=== PATIENT | male | born 1965 | race Caucasian/White ===

== ENCOUNTER 2016-09-23 19:36 | Emergency (ER) | payer BC ==
[2016-09-23 19:51] VITALS: BP 132/76
--- NOTE | 2016-09-23 19:54 | ED ---
Lower Extremity - HPI Summary HPI Summary: 50 YEAR OLD PRESENTS WITH COMPLAINS OF RIGHT KNEE PAIN. - History of Current Complaint Chief Complaint: UCLowerExtremity Stated Complaint: KNEE PAIN Time Seen by Provider: 09/23/16 19:53 - Allergies/Home Medications Allergies/Adverse Reactions: Allergies Allergy/AdvReac Type Severity Reaction Status Date / Time Iodine Allergy Intermediate Rash Verified 12/29/15 13:22 Latex Allergy Intermediate Rash Verified 12/29/15 13:22 Penicillins Allergy Unknown Unknown Verified 12/29/15 13:22 Reaction Details Home Medications: Home Medications Magnesium [Magnesium Sulfate] 70 mg PO 09/23/16 [History] PMH/Surg Hx/FS Hx/Imm Hx Previously Healthy: Yes Endocrine/Hematology History: Denies: Hx Diabetes, Hx Thyroid Disease Cardiovascular History: Denies: Hx Hypertension, Hx Pacemaker/ICD Respiratory History: Reports: Hx Chronic Obstructive Pulmonary Disease (COPD) Denies: Hx Asthma GI History: Denies: Hx Ulcer History: Denies: Hx Renal Disease Musculoskeletal History: Reports: Hx Back Problems Sensory History: Reports: Hx Contacts or Glasses Denies: Hx Hearing Aid Opthamlomology History: Reports: Hx Contacts or Glasses Neurological History: Reports: Hx Seizures, Other Neuro Impairments/Disorders Psychiatric History: Denies: Hx Panic Disorder - Surgical History Surgery Procedure, Year, and Place: HX SEIZURES/ MIGRAINES. 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 Smoking Status (MU): Heavy Every Day Tobacco Smoker Type: Cigarettes Amount Used/How Often: 1/2 pack/day Length of Time of Smoking/Using Tobacco: 15 years Have You Smoked in the Last Year: Yes Review of Systems Constitutional: Negative Eyes: Negative ENT: Negative Cardiovascular: Negative Respiratory: Negative Gastrointestinal: Negative Genitourinary: Negative Positive: Myalgia, Other - RIGHT KNEE PAIN All Other Systems Reviewed And Are Negative: Yes Physical Exam Triage Information Reviewed: Yes Vital Signs On Initial Exam: Initial Vitals Temp Pulse Resp BP Pulse Ox 36.8 C 88 18 132/76 97 09/23/16 19:48 09/23/16 19:48 09/23/16 19:48 09/23/16 19:48 09/23/16 19:48 Vital Signs Reviewed: Yes Skin: Positive: Warm Head/Face: Positive: Normal Head/Face Inspection Eyes: Positive: Normal ENT: Positive: Normal ENT inspection Cardiovascular: Positive: RRR Abdomen Description: Positive: Nontender Musculoskeletal: Positive: Other - RIGHT KNEE PAIN Diagnostics - Vital Signs Vital Signs Temp Pulse Resp BP Pulse Ox 09/23/16 19:48 36.8 C 88 18 132/76 97 - Laboratory Lab Statement: Any lab studies that have been ordered have been reviewed, and results considered in the medical decision making process. Lower Extremity Course/Dx - Diagnoses Provider Diagnoses: Knee pain, chronic Discharge - Discharge Plan Condition: Stable Disposition: HOME Prescriptions: Meloxicam [Mobic] 7.5 mg PO BID PC #30 tab Patient Education Materials: Knee Pain (ED) Referrals: John Leong MD [Medical Doctor] - Kim Tracey MD [Primary Care Provider] -
--- NOTE | 2016-09-23 20:49 | RAD ---
INDICATION: Atraumatic right knee pain COMPARISON: None TECHNIQUE: 5 view radiograph of the right knee. FINDINGS: Degenerative changes of the right knee include narrowing of the lateral compartment more so than the medial compartment. There is narrowing of the patellofemoral joint with exuberant marginal osteophyte formation at the superior pole. On the sunrise view there is medial greater than lateral narrowing of the patellofemoral joint with marginal osteophyte formation. On the AP view the patella appears to be displaced laterally but this may be simply a consequence of poor positioning. There is no large joint effusion. IMPRESSION: Degenerative changes as described above appearing advanced for the patient's stated age. Please correlate to signs or symptoms of patellar tracking syndrome. If the patient's symptoms persist, follow-up imaging is recommended.
[2016-09-23] MEDS ORDERED: Ibuprofen TAB* 400 MG PO ONE (20:53)
== END 2016-09-23 21:04 | disposition home or self-care (01) ==
LOC: UCEAST 19:36
DX: M25.561 Pain in right knee (principal); G89.29 Other chronic pain; Z88.0 Allergy status to penicillin; Z91.040 Latex allergy status; J44.9 Chronic obstructive pulmonary disease, unspecified; F17.210 Nicotine dependence, cigarettes, uncomplicated
CPT/HCPCS: 99212; A9270-GY; G0463

== ENCOUNTER 2016-12-13 11:00 | Inpatient (IN) | payer BC ==
--- NOTE | 2016-12-18 21:50 | HP ---
HISTORY AND PHYSICAL: DATE OF SURGERY: 12/24/16 DATE OF OFFICE VISIT: 12/17/16 SURGEON: Cecilia Edwards MD* (dictated by SHARON Booker). PROCEDURE: Right total knee arthroplasty. CHIEF COMPLAINT: Right knee pain. HISTORY OF PRESENT ILLNESS: Mr. Price is a 51-year-old gentleman with severe end- stage osteoarthritis of the right knee joint. He has failed conservative management and has elected to proceed with a right total knee arthroplasty, which is scheduled for 12/24/[address] Edwards. PAST MEDICAL HISTORY: 1. Migraines. 2. Unspecified seizure disorder. PAST SURGICAL HISTORY: Denies. CURRENT MEDICATIONS: 1. Percocet. 2. Nabumetone. 3. Gabapentin. 4. Rizatriptan benzoate. 5. Amitriptyline. ALLERGIES: Iodine and penicillin. FAMILY HISTORY: Diabetes, hypertension. SOCIAL HISTORY: He is a 51-year-old gentleman lives with his . He smokes approximately 1 pack of cigarettes a day for the last 15 years. He denies use of drugs or alcohol. REVIEW OF SYSTEMS: A complete 14-point review of systems was reviewed with the patient. It was positive for history of seizures. Denies history of DVT, PE, hepatitis C, or HIV. PHYSICAL EXAMINATION GENERAL: Well developed, well nourished, in no acute distress. VITAL SIGNS: He stands 6 feet tall, weighs 235 pounds. Blood pressure is 128/ 76, heart rate is 76. HEENT: Normocephalic, atraumatic. NECK: Supple. No palpable lymph nodes. PULMONARY: Clear to auscultation bilaterally. CARDIO: Regular rate and rhythm. Strong S1, S2. ABDOMEN: Soft, nontender, nondistended. NEUROLOGICAL: Alert and oriented x3. Cranial nerves II through XII are intact. MUSCULOSKELETAL: Right lower extremity, the skin is intact. There are no open wounds or abrasions. There is a valgus deformity of the knee with MCL laxity. Moderate joint effusion. 10 to 100 degrees of flexion with patellofemoral crepitus and pain. No varus or valgus instability. Negative Eran's. He was distally neurovascularly intact. ASSESSMENT AND PLAN: Mr. Price is a 51-year-old gentleman with severe end- stage osteoarthritis of the right knee joint with a valgus deformity. He has failed conservative management and has elected to proceed with a right total knee arthroplasty, which is scheduled for 12/24/[address] Edwards discussed the risks and benefits of the surgery at today's visit and all of his questions were answered. Coumadin, Percocet, and Colace were sent to his pharmacy for postoperative pain control and DVT prophylaxis. He will follow up with Dr. Edwards in 2 weeks after the surgery. SHARON BOOKER [id number]/[facility] #: [id number] JONATHAN
[2016-12-24] MEDS ORDERED: Buffered Lidocaine 0.9% SYRIN* 5 ML/SYR SYRINGE INTRADERM ONE (06:00)
[2016-12-24] MEDS ORDERED: Famotidine IV* 10 MG/ML 2 ML (20 mg) IV ONE (06:00)
[2016-12-24] MEDS ORDERED: Metoclopramide TAB* 10 MG PO ONE (06:00)
[2016-12-24] MEDS ORDERED: Clindamycin 900 MG IVPREMIX(* 900 MG/50 ML SDV IV ONE (08:41)
[2016-12-24] MEDS ORDERED: Famotidine IV* 10 MG/ML 2 ML (20 mg) ONE (08:41)
[2016-12-24] MEDS ORDERED: Metoclopramide TAB* 10 MG ONE (08:41)
[2016-12-24] MEDS ORDERED: Buffered Lidocaine 0.9% SYRIN* 5 ML/SYR SYRINGE ONE (08:42)
[2016-12-24] MEDS ORDERED: Ketorolac INJ* 30 MG/ML 1 ML VIAL ONE (09:58)
[2016-12-24] MEDS ORDERED: fentaNYL* 50 MCG/ML 2 ML VIAL (100 MCG VIAL) ONE ×4 (09:58→15:26)
[2016-12-24] MEDS ORDERED: Dexamethasone IV* 4 MG/ML 1 ML (4 MG) ONE (09:58)
[2016-12-24] MEDS ORDERED: KETAMINE HCL* 50 MG/ML 10 ML VIAL ONE (09:58)
[2016-12-24] MEDS ORDERED: Propofol* 10 MG/ML 20 ML BTL IV PUSH ONE (09:58)
[2016-12-24] MEDS ORDERED: Ondansetron INJ* 2 MG/ML VIAL ONE (09:58)
[2016-12-24] MEDS ORDERED: Lidocaine 2% PF * 5 ML VIAL ONE ×2 (09:58→10:05)
[2016-12-24] MEDS ORDERED: Midazolam* 1 MG/ML 5 ML VIAL (5 MG) ONE (09:59)
[2016-12-24] MEDS ORDERED: ROPIVACAINE 5 MG/ML 30 ML BTL (0.5%) ONE (10:05)
[2016-12-24] MEDS ORDERED: Cisatracurium* 2 MG/ML MDV 5 ML ONE (11:33)
[2016-12-24] MEDS ORDERED: fentaNYL* 50 MCG/ML 5 ML VIAL (250 MCG VIAL) ONE (11:35)
[2016-12-24] MEDS ORDERED: Levalbuterol HFA INHALER* 1 PUFF MDI ONE (11:55)
[2016-12-24] MEDS ORDERED: Phenylephrine IV* 40 MCG/ML 10 ML SYRINGE ONE (12:02)
[2016-12-24] MEDS ORDERED: Ondansetron INJ* 2 MG/ML VIAL IV PRN ×2 (12:43→14:56)
[2016-12-24] MEDS ORDERED: DiMENhydriNATE IV* 50 MG/ML VIAL IV PUSH PRN (12:43)
[2016-12-24] MEDS ORDERED: Levalbuterol 0.63MG/3ML NEB* UNIT OF USE INH PRN (12:43)
[2016-12-24] MEDS ORDERED: Bupivacaine 0.5% SDV PF* 30 ML VIAL ONE (13:44)
[2016-12-24] MEDS ORDERED: HYDROmorphone INJ* 1 MG/ML CARPUJECT SYRINGE ONE ×3 (13:48→15:26)
[2016-12-24] MEDS ORDERED: Polyethylene Glycol 3350* 17 GM PACKET PO PRN (14:56)
[2016-12-24] MEDS ORDERED: Acetaminophen TAB* 325 MG PO PRN (14:56)
[2016-12-24] MEDS ORDERED: traZODone TAB* 50 MG TAB PO PRN (14:56)
[2016-12-24] MEDS ORDERED: Bisacodyl SUPP* 10 MG SUPP PR PRN (14:56)
[2016-12-24] MEDS ORDERED: oxyCODONE/Acetamin 5/325 MG* TAB PO PRN (14:56)
[2016-12-24] MEDS ORDERED: diPHENhydraMINE IV* 50 MG/ML 1 ml VIAL (BENADRYL) IV PRN (14:56)
[2016-12-24] MEDS ORDERED: Levalbuterol 1.25MG/0.5ML NEB ONE (14:58)
[2016-12-24] MEDS: fentaNYL* 50 MCG/ML 2 ML VIAL (100 MCG VIAL) IV PRN ×5 (15:00→16:13)
[2016-12-24] MEDS: HYDROmorphone INJ* 1 MG/ML CARPUJECT SYRINGE IV PRN ×3 (15:00→16:13)
--- NOTE | 2016-12-24 15:31 | RAD ---
INDICATION: Right knee arthroplasty COMPARISON: Preoperative radiograph dated December 17, 2016 TECHNIQUE: 2 view radiograph of the right knee. FINDINGS: On the AP and lateral views the right knee prosthesis is anatomically aligned. There is lucency and irregularity of the anterior tibial plateau seen on the lateral view corresponding to the appearance seen on the preoperative radiograph. A surgical drain is noted in place. IMPRESSION: Anatomic alignment of right knee prosthesis as described above.
[2016-12-24] MEDS ORDERED: Warfarin TAB(*) 6 MG PO ONE (17:00)
[2016-12-24] MEDS ORDERED: Gabapentin CAP(*) 300 MG ONE (17:18)
[2016-12-24] MEDS: oxyCODONE TAB* 5 MG TAB PO PRN ×2 (17:21→21:57)
[2016-12-24] MEDS: Morphine INJ* 2 MG/ML 1 ML SYRINGE (TWO MG - NEW SYRINGE VERSION) IV PRN (17:23)
[2016-12-24] MEDS ORDERED: Gabapentin CAP(*) 300 MG PO SCH (18:00)
[2016-12-24] MEDS ORDERED: Mouth Piece, Nicotine* 1 EACH CARTRIDGE INH ONE (18:00)
[2016-12-24] MEDS: Nicotine Inhaler* 10 MG AMP INH PRN ×2 (18:23→22:02)
[2016-12-24] MEDS: oxyCODONE/Acetamin 5/325 MG* TAB PO PRN (19:30)
[2016-12-24] MEDS ORDERED: Amitriptyline TAB* 100 MG PO SCH (21:00)
[2016-12-24] MEDS: Gabapentin CAP(*) 300 MG PO SCH (21:49)
[2016-12-24] MEDS: Docusate CAP* 100 MG PO SCH (21:49)
[2016-12-24] MEDS: Magnesium Hydroxide LIQ* 30 ML UDC PO SCH (21:49)
[2016-12-24] MEDS: Clindamycin 600 MG IVPREMIX(* 600 MG/50 ML SDV IV SCH (21:57)
[2016-12-25] MEDS: oxyCODONE/Acetamin 5/325 MG* TAB PO PRN ×4 (01:17→15:54)
[2016-12-25] MEDS: Morphine INJ* 2 MG/ML 1 ML SYRINGE (TWO MG - NEW SYRINGE VERSION) IV PRN (01:21)
[2016-12-25] MEDS: Clindamycin 600 MG IVPREMIX(* 600 MG/50 ML SDV IV SCH ×2 (04:15→12:09)
[2016-12-25] MEDS: oxyCODONE TAB* 5 MG TAB PO PRN ×3 (04:29→13:58)
[2016-12-25 04:50] LABS: Hematocrit 34 % (42-52); Hemoglobin 11.5 g/dl (14.0-18.0)
[2016-12-25 05:06] LABS: BUN/Creatinine Ratio 12.1 (8-20); Calcium 8.7 mg/dL (8.6-10.3); EGFR African American 102.5 (>60); EGFR Non-African American 79.7 (>60); Potassium 4.3 mmol/L (3.5-5.0)
[2016-12-25] MEDS: Nicotine Inhaler* 10 MG AMP INH PRN ×4 (06:08→16:49)
--- NOTE | 2016-12-25 07:09 | OP ---
DICTATION ENDS ABRUPTLY DATE OF OPERATION: 12/24/16 - ROOM #347 DATE OF : 65 SURGEON: Cecilia Edwards MD. SUPERVISOR ESTERS AND EMULSIFIERS: SHARON Duran. Ms. Lundberg did help throughout the procedure with preparation of the leg, wound retraction, manipulation of the knee and wound closure. ANESTHESIOLOGIST: Dr. Favian Pacheco. ANESTHESIA: General with adductor nerve block. PRE-OP DIAGNOSIS: Severe posttraumatic degenerative osteoarthritis of the right knee joint with valgus deformity. POST-OP DIAGNOSIS: Severe posttraumatic degenerative osteoarthritis of the right knee joint with valgus deformity. OPERATIVE PROCEDURE: Right total knee arthroplasty. TOURNIQUET TIME: 65 minutes. ESTIMATED BLOOD LOSS: 200 cc. COMPLICATIONS: None. SPECIMEN: Bone and cartilage from the right knee joint sent to pathology. BRIEF HISTORY/INDICATION: Mr. Price is a pleasant 51-year-old gentleman with prior trauma to the right knee. Over time, he did have surgical intervention as well as physical therapy, intraarticular injections, antiinflammatories, and pain medications. He developed posttraumatic osteoarthritis with lateral bone- on-bone contact and radiographs showing also to date valgus deformity of the right knee. Due to continued pain and decreased quality of life, the patient elected to undergo right total knee arthroplasty. Informed consent was obtained from the patient. He understood the risks of the surgery included, but were not limited to bleeding, infection, damage to nearby structures, continued pain, need for further surgery, intraoperative fracture, nerve palsy, hardware failure, loosening, knee stiffness, loss of motion, stroke, heart attack, blood clot, and . He wished to proceed. Specific to this patient were the risks of intraoperative fracture due to tibial tuberosity abnormal calcification as well as early loosening due to his young age. He accepted these increased risks. INTRAOPERATIVE FINDINGS: Intraoperatively, the patient was noted to have a large anterior intraarticular loose body, which was approximately 1 cm in diameter. He had full thickness loss of cartilage in the lateral and patellofemoral compartments. He had significant patella baja as well as tibial tubercle ossification. Preop range of motion was 15 to 120 degrees of flexion. Postop range of motion was full extension to 130 degrees of flexion. Preop valgus deformity of 12 degrees. Postoperative valgus alignment to 5 degrees. DESCRIPTION OF PROCEDURE: Mr. Price was identified in the preanesthesia unit. His right lower extremity was marked as the correct operative side. Informed consent was signed and placed in the chart. Patient was taken to the operating room and placed under general anesthesia with an adductor nerve block. A Guillen catheter was placed. Tourniquet was placed on the right thigh. Right lower extremity was prepped and draped in the usual sterile fashion. Preop time-out was made to correctly identify the patient's side and site. Appropriate perioperative antibiotics were given within 1 hour of incision. Tourniquet was inflated and total tourniquet time for this procedure was 65 minutes. A 15-cm midline incision was made with a 10 blade and carried down to the extensor mechanism. A new 10 blade was used to make a standard medial para- patellar arthrotomy. The patella was subluxed laterally. Immediately, there was patella baja and difficulty with exposure due to tibial tubercle ossification. A 1 cm loose body was removed with rongeur from the anterior tibia near the tibial tubercle region. Electrocautery was used to subperiosteally elevate soft tissue off the superomedial tibia to the midsagittal plane. The knee was flexed up. Anterior horn of the lateral meniscus and ACL were sharply released. A drill was used to enter the distal femur. Intramedullary distal femoral cutting guide was placed, was pinned into proper position. Lateral femoral condyle hypoplasia was noted and accounted for. Oscillating saw was used to make the distal femoral cut. Next the external rotation guide was pinned on the distal femur. Distal femur was sized to a size 7. Size 7 multi cutting jig was placed and then oscillating saw was used to make the appropriate 4 chamfer cuts. PCL was completely released. The tibia was subluxed anteriorly. Extramedullary tibial cutting guide was pinned on the proximal tibia. The oscillating saw was used to make the appropriate proximal tibial cut perpendicular to the mechanical axis of the tibia. The bone was carefully removed. The knee was brought out to full extension. Spacer block had good fit. There was tightness laterally. Electrocautery was used to release the posterolateral capsule. 15 blade was used to make pie-crusting along the lateral ligaments that were tight. Medial and lateral ligament balancing was improved. Flexion and extension gap was well balanced. The knee was flexed up. Lamina spreaders were placed both medially and laterally. Any remaining meniscus was carefully excised using electrocautery. Curved osteotome was used to remove posterior osteophytes. A tibial tray and drop nohemy was placed and once again confirmed satisfactory proximal tibial cut. A right, size 7 femoral trial was impacted onto the femur and he had good fit. The box for the posterior stabilized implant was repaired using a reamer and box cut osteotome. Trial size 6 tibial tray with a 9-mm insert trial was placed. The knee was taken through a range of motion and had full extension to 130 degrees of flexion with with good patellofemoral tracking. The patella was everted. There was a short patellar tendon with patellar baja that was chronic, as well as tremendous calcification of the tibial tuberosity. 9 mm of patellar bone and cartilage was successfully removed with an oscillating saw. The patella was sized to a size 35 and the three peg holes were drilled. Trial patella was placed and patellar tracking was satisfactory. All trials were removed, the tibia was sized to a size 6. The tibia was prepared with a size 6 keel punch. All bony cut surfaces were washed with normal saline and dried. The final implants were cemented into place. 9 mm insert trial was placed and the knee was brought out into full extension. The tourniquet was turned down at 65 minutes. Electocautery was used to obtain meticulous hemostasis. The knee was irrigated with normal saline. Once the cement had cured the insert trial was removed. Any excess cement was carefully removed. Final insert was a 9 mm size 5-6 posterior stabilized insert. This was locked onto the tibial tray. The extensor mechanism was closed over a medium hemovac drain using interrupted 1-0 vicryls. The rest of the incision was closed in a layered fashion and running 3-0 nylon was used on skin. Sterile dressings were applied. The patient's anesthesia was reversed without difficulty. He was taken to the PACU in stable condition. Intended weightbearing will be WBAT. Intended DVT prophylaxis will be coumadin with a lovenox bridge. [id number]/[facility] #: [id number] MTDD
[2016-12-25] MEDS: Magnesium Hydroxide LIQ* 30 ML UDC PO SCH (07:42)
[2016-12-25] MEDS: Gabapentin CAP(*) 300 MG PO SCH ×2 (07:44→13:59)
[2016-12-25] MEDS: Docusate CAP* 100 MG PO SCH (07:44)
--- NOTE | 2016-12-25 08:19 | PN ---
Progress Note - Progress Note Date of Service: 12/25/16 SOAP: Subjective: []Patient seen at bedside. He is doing very well and would like to go home today. Pain is rated 6-7/10 with percocet and oxycodone. His murray was removed and he is urinating on his own without difficulty. He has not had a bowel movement yet but is passing gas. Denies chest pain, shortness of breath, calf pain, nausea, abdominal upset, fever. Objective: [] Laboratory Last Values Hgb 11.5 g/dl (14.0-18.0) L 12/25/16 04:37 Hct 34 % (42-52) L 12/25/16 04:37 INR (Anticoag Therapy) 1.05 (0.89-1.11) 12/25/16 04:37 Sodium 134 mmol/L (133-145) 12/25/16 04:37 Potassium 4.3 mmol/L (3.5-5.0) 12/25/16 04:37 Chloride 105 mmol/L (101-111) 12/25/16 04:37 Carbon Dioxide 25 mmol/L (22-32) 12/25/16 04:37 Anion Gap 4 mmol/L (2-11) 12/25/16 04:37 BUN 12 mg/dL (6-24) 12/25/16 04:37 Creatinine 0.99 mg/dL (0.67-1.17) 12/25/16 04:37 Est GFR ( Amer) 102.5 (>60) 12/25/16 04:37 Est GFR (Non-Af Amer) 79.7 (>60) 12/25/16 04:37 BUN/Creatinine Ratio 12.1 (8-20) 12/25/16 04:37 Glucose 155 mg/dL (70-100) H 12/25/16 04:37 Calcium 8.7 mg/dL (8.6-10.3) 12/25/16 04:37 Vital Signs Temp 98.0 F 12/25/16 04:01 Pulse 76 12/25/16 04:01 Resp 16 12/25/16 07:44 BP 108/63 12/25/16 04:01 Pulse Ox 96 12/25/16 04:25 Intake & Output 12/24/16 12/25/16 12/25/16 18:59 06:59 18:59 Intake Total 3540 4290 Output Total 750 5700 Balance 2790 -1410 Weight 236 lb Intake: IV Fluids 3300 1035 LR 1950 980 NS 0.9% 1350 clindamycin 55 IVPB 55 clindamycin 55 Oral 240 3200 Output: Murray 750 5700 Other: # Bowel Movements 0 Dr. Edwards removed drain this morning without complication. Dressing is clean, dry, intact. Calves are supple and nontender without erythema or edema. DP and PT pulses 2+ and symmetric Sensation to light touch intact of right extremity Distally DF/PF intact bilaterally, negative homen's sign bilaterally. Horizontal nystagmus Assessment: [] POD1 Right Total Knee arthroplasty, Dr. 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 Edwards agrees patient can go home today if PT feels he is ready. Percocet/ Oxycodone for pain control. Has percocet at home Currently on coumadin, if home today transition to ASA 325 BID
[2016-12-25] MEDS ORDERED: Enoxaparin(*) 40 MG/0.4 ML SYR SUBCUT SCH (09:00)
[2016-12-25] MEDS ORDERED: Nabumetone TAB* 500 MG PO SCH (09:00)
[2016-12-25] MEDS ORDERED: Vitamin THERAPEUTIC TAB PO SCH (09:00)
--- NOTE | 2016-12-25 15:32 | PN ---
Progress Note - Progress Note Date of Service: 12/25/16 SOAP: Subjective: []Patient was seen at bedside, he is feeling very well and eager to go home. Pain is well controlled. Tolerating PO, urinating and passing gas. No BM yet. Comfortable walking with walker, has home care set up. Objective: [] General: alert, calm and cooperative. In no acute distress RLE: - DP, PT pulses 2+ - Calf supple and nontender, negative homen sign - sensation intact distally - DF/PF intact - Dressing with scant bloody discharge, falling down superiorly. Dressing was changed, wound was clean dry and intact without erythema of wound edges, no discharge. Assessment: [] POD1 Right total knee arthroplasty Plan: [] Discharge home today Home serves are set up, has post op appt with Dr. Edwards Aspirin 325 mg BID. Knows not to take coumadin at home Shower POD 3, no submerging wound. Percocet for pain control at pharmacy
[2016-12-25] MEDS ORDERED: Warfarin TAB(*) 10 MG PO ONE (17:00)
[2016-12-25 17:23] VITALS: BP 158/82
--- NOTE | 2016-12-26 04:54 | DS ---
DISCHARGE SUMMARY: DATE OF ADMISSION: 12/24/16 DATE OF DISCHARGE: 12/25/16 DATE OF SURGERY: 12/24/16 PROCEDURE: Right total knee arthroplasty. SURGEON: Dr. Cecilia Edwards * (DICTATED BY SHARON ORTEGA) FASHION STYLIST: SHARON Duran. CONSULTATIONS: Included Physical Therapy, Occupational Therapy. HISTORY: Mr. Price is a 51-year-old gentleman with severe end-stage osteoarthritis of the right knee joint. He has failed conservative management and has elected to proceed with a right total knee arthroplasty on 12/24/[address] Edwards. HOSPITAL COURSE: Mr. Price was admitted to [facility] on 12/24/16. He underwent a right total knee arthroplasty. Postoperatively, he recovered in the short stay surgical unit. On postoperative day 1, his Guillen catheter was removed and he was able to urinate on his own. He was advanced to a regular diet without difficulty and his pain was controlled with p.o. Percocet as well as oxycodone. He was restarted on home medications. His vital signs and labs remained stable throughout his course. He was able to bear weight as tolerated on the right lower extremity. He advanced appropriately with physical therapy and occupational therapy. His DVT prophylaxis was managed with Lovenox and Coumadin. Due to his early discharge, he is being discharged on aspirin 325 mg twice per day and discontinuing Coumadin and Lovenox. PHYSICAL EXAMINATION: General: The patient is noted to be calm and cooperative , in no acute distress. He is alert. He is oriented. Vital signs on the day of discharge, temperature 98.0, pulse 86, respiratory rate 17, oxygen saturation 100, blood pressure 153/79. Examination of the right lower extremity , Dr. Edwards removed drain on postop day 1 without complication. Dressing is clean, dry, and intact. Just prior to discharge, dressing was changed due to falling down. Incision appeared clean, without discharge. No surrounding erythema. Calves are supple and nontender without erythema or edema. Dorsalis pedis and posterior tibial pulses are 2+ and symmetric. Sensation to light touch of right lower extremity is intact distally. Dorsiflexion and plantarflexion are intact bilaterally. Negative Priya sign bilaterally. LABORATORY DATA: On the day of discharge, hemoglobin 11.5, hematocrit 34. INR 1.05. Radiographs showed anatomic alignment of the right knee prosthesis. DISCHARGE MEDICATIONS: Include home medication of: 1. Gabapentin 600 mg p.o. t.i.d. 2. Amitriptyline 10 mg, take 100 mg p.o. at bedtime. 3. Gabapentin 300 mg q.p.m. 4. Nabumetone 500 mg p.o. q.a.m. Medications associated with this discharge include: 1. Acetaminophen 325 mg tablet, take 650 tabs p.o. q.4 hours p.r.n. for pain or fever. Max daily dose is 4000 mg. 2. Aspirin 325 mg one tab p.o. b.i.d. 3. Docusate 100 mg one tab p.o. b.i.d. 4. Percocet 5/325, one to two tabs p.o. q.4 to 6 hours, max daily dose of 10. CONDITION ON DISCHARGE: Stable. DISCHARGE INSTRUCTIONS: Mr. Price is a 51-year-old gentleman, postop day 1, status post right total knee arthroplasty, which was uncomplicated. He is orthopedically and medically stable for discharge to home with services. His labs and vital signs are stable. He will restart his home medications. He will not be on any Coumadin. He will be taking aspirin 325 mg b.i.d. He will remain weightbearing as tolerated on the right lower extremity. He will have home PT twice a week. He will take Percocet for pain control. He will take Colace up to 3 times a day for constipation. He will follow up with Dr. Edwards in 10 to 14 days for incision check and suture removal for which he already has an appointment. He was instructed to go immediately to the ER should he develop any chest pain or shortness of breath. Should he develop fever, increasing pain, or increasing redness, he is to call the office immediately. SHARON ORTEGA [id number]/[facility] #: [id number] JONATHAN
== END 2016-12-25 17:20 | disposition home health service (06) | DRG 302 ==
LOC: AA 12-24 08:14 → SSU 12-24 16:57
PROVIDERS: ADMIT Orthopaedic Surgery Adult Reconstructive Orthopaedic Surgery; ATTEND Orthopaedic Surgery Adult Reconstructive Orthopaedic Surgery
PROC: 0SRC0J9 Replacement of Right Knee Joint with Synthetic Substitute, Cemented, Open Approach (ICD-10-PCS; principal; 2016-12-24 13:00)
DX: M17.31 Unilateral post-traumatic osteoarthritis, right knee (principal); F17.210 Nicotine dependence, cigarettes, uncomplicated; G43.909 Migraine, unspecified, not intractable, without status migrainosus; G40.909 Epilepsy, unspecified, not intractable, without status epilepticus; H55.09 Other forms of nystagmus; H52.209 Unspecified astigmatism, unspecified eye; J44.9 Chronic obstructive pulmonary disease, unspecified; M51.26 Other intervertebral disc displacement, lumbar region; M21.061 Valgus deformity, not elsewhere classified, right knee; Z79.82 Long term (current) use of aspirin; Z88.8 Allergy status to other drugs, medicaments and biological substances; Z88.0 Allergy status to penicillin; Z83.3 Family history of diabetes mellitus; Z82.49 Family history of ischemic heart disease and other diseases of the circulatory system; Q74.2 Other congenital malformations of lower limb(s), including pelvic girdle
CPT/HCPCS: 36415; 80048; 85014; 85018; 85610; A9270-GY; C1776; J1100; J1170; J1650; J1885; J2250; J2270; J2405; J2704; J2795; J3010; J7614

== ENCOUNTER 2017-01-17 17:38 | Emergency (ER) | payer BC ==
--- NOTE | 2017-01-17 18:32 | ED ---
Lower Extremity - HPI Summary HPI Summary: 51M presents with right leg pain. He has knee replacement done by dr Edwards in Nov 2016. He states he had replacement due to abnormality with his knee. He states today he was trying to hang the lights and stood on toes and felt a pop in knee. He states has pain that radiates up right thigh. He has notice more swelling in the knee. He states is sharp pain in thigh. He denies any dislocation of his patella. He has been doing PT for his knee replacement. PT comes tomorrow. - History of Current Complaint Chief Complaint: EDExtremityLower Stated Complaint: KNEE PAIN Time Seen by Provider: 01/17/17 17:49 Pain Intensity: 9 - Allergies/Home Medications Allergies/Adverse Reactions: Allergies Allergy/AdvReac Type Severity Reaction Status Date / Time Iodine Allergy Intermediate Rash Verified 12/24/16 08:56 Latex Allergy Intermediate Rash Verified 12/24/16 08:56 Penicillins Allergy Unknown Unknown Verified 12/24/16 08:56 Reaction Details PMH/Surg Hx/FS Hx/Imm Hx Endocrine/Hematology History: Denies: Hx Diabetes, Hx Thyroid Disease Cardiovascular History: Denies: Hx Hypertension, Hx Pacemaker/ICD, Other Cardiovascular Problems/ Disorders Respiratory History: Reports: Hx Chronic Obstructive Pulmonary Disease (COPD) Denies: Hx Asthma GI History: Denies: Hx Ulcer History: Denies: Hx Renal Disease Musculoskeletal History: Reports: Hx Arthritis - back, knees and hands, Hx Back Problems Sensory History: Reports: Hx Contacts or Glasses - glasses Denies: Hx Hearing Aid Opthamlomology History: Reports: Hx Contacts or Glasses - glasses Neurological History: Reports: Hx Headaches, Hx Migraine - 1 per month with stress, Hx Seizures - last one 5 yrs ago from fall, Other Neuro Impairments/ Disorders Psychiatric History: Denies: Hx Panic Disorder, Other Psychiatric Issues/Disorders - Surgical History Surgery Procedure, Year, and Place: HX SEIZURES/ MIGRAINES. 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 Smoking Status (MU): Heavy Every Day Tobacco Smoker Type: Cigarettes Amount Used/How Often: pack a day for 31 years Length of Time of Smoking/Using Tobacco: 15 years Have You Smoked in the Last Year: Yes Review of Systems Negative: Fever Negative: Chest Pain Negative: Shortness Of Breath Positive: Myalgia - right knee and thigh pain All Other Systems Reviewed And Are Negative: Yes Physical Exam Triage Information Reviewed: Yes Vital Signs On Initial Exam: Initial Vitals Temp Pulse Resp BP Pulse Ox 98.5 F 114 18 133/80 98 01/17/17 17:42 01/17/17 17:42 01/17/17 17:42 01/17/17 17:42 01/17/17 17:42 Vital Signs Reviewed: Yes Appearance: Positive: Well-Appearing Skin: Positive: Warm, Dry, Other - has healing incision on right knee Head/Face: Positive: Normal Head/Face Inspection Eyes: Positive: Normal, Conjunctiva Clear Respiratory/Lung Sounds: Positive: Clear to Auscultation, Breath Sounds Present Cardiovascular: Positive: Normal, RRR Musculoskeletal: Positive: Limited @ - right knee, able to flex to 90 with pain , Other - pain and tender over quadriceps and pattela, neg ballotment, good pulses Neurological: Positive: Normal Psychiatric: Positive: Normal Diagnostics - Vital Signs Vital Signs Temp Pulse Resp BP Pulse Ox 01/17/17 17:42 98.5 F 114 18 133/80 98 - Laboratory Lab Statement: Any lab studies that have been ordered have been reviewed, and results considered in the medical decision making process. - Radiology femur, knee Xray Interpretation: No Acute Changes - IMPRESSION: 1. Degenerative changes of the right hip as described above. 2. No radiographically apparent fracture or dislocation involving the right lower extremity. 3. The right knee prosthesis is anatomically aligned without signs of effusion. If the patient's symptoms persist, follow-up imaging is recommended. Radiology Interpretation Completed By: Radiologist Lower Extremity Course/Dx - Course Course Of Treatment: 51M presents with right leg pain. He has knee replacement done by dr Edwards in Nov 2016. He states he had replacement due to abnormality with his knee. He states today he was trying to hang the lights and stood on toes and felt a pop in knee. He states has pain that radiates up right thigh. He has notice more swelling in the knee. He states is sharp pain in thigh. He denies any dislocation of his patella. He has been doing PT for his knee replacement. on exam had tenderness over quadriceps, able to flex knee. xray normal. patient states immedaitely after felt pop straighten leg. he denies feeling that patella dislocated but with recent surgery has that potential. patient did not want knee imbolizer or crutches. told to follow up with ortho. will treat with RICE. patient understand and agrees with plan. - Diagnoses Differential Diagnosis/HQI/PQRI: Positive: Dislocation, Fracture (Closed), Sprain, Strain Provider Diagnoses: Right leg pain Discharge - Discharge Plan Condition: Good Disposition: HOME Patient Education Materials: Leg Pain (ED) Referrals: Cecilia Edwards MD [Medical Doctor] - Jose Burnett NP [Primary Care Provider] - Additional Instructions: Take Tylenol or ibuprofen every 6 hours as needed for pain Apply ice, rest, elevate Follow up with ortho Return to ED if develop any new or worsening symptoms
--- NOTE | 2017-01-17 18:46 | RAD ---
Indication: Knee pain with proximal radiation 8 weeks status post total knee arthroplasty. Comparison: Most recent knee radiograph is the immediate postoperative knee radiograph dated December 24, 2016 Technique: 7 views of the right femur and 2 views of the right knee were obtained. Report: Degenerative changes of the right hip include joint space narrowing and mild sclerotic change at the acetabular roof. There is mild marginal osteophyte formation. The femoral shaft is intact. The knee prosthesis is anatomically aligned in the AP and lateral projections. There is no evidence of periprosthetic fracture or loosening. There is no large joint effusion. IMPRESSION: 1. Degenerative changes of the right hip as described above. 2. No radiographically apparent fracture or dislocation involving the right lower extremity. 3. The right knee prosthesis is anatomically aligned without signs of effusion. If the patient's symptoms persist, follow-up imaging is recommended.
[2017-01-17] MEDS ORDERED: Ketorolac INJ* 60 MG/2 ML VIAL IM ONE (19:05)
[2017-01-17 19:51] VITALS: BP 130/81
== END 2017-01-17 20:09 | disposition home or self-care (01) ==
LOC: ED 17:38
DX: M79.604 Pain in right leg (principal); M25.569 Pain in unspecified knee; Z96.651 Presence of right artificial knee joint
CPT/HCPCS: 96372; 99283; J1885

== ENCOUNTER 2017-05-30 12:38 | Emergency (ER) | payer BC ==
--- OUTSIDE RECORDS SUMMARY | 2017-05-30 13:07 | XMS REPORT ---
:1965 External Reference #:[id number] Author Organization [facility] Address [address] [place] [address] Phone [phone] Care Team Providers Name Role Phone Garett Aquino MD Primary Care Physician Unavailable Payers Type Date Identification Numbers Payment Provider Subscriber Commercial Policy Number: [id number] [facility] [employer]inel [employer] Group Number: [id number] [address] PayID: [id number] [place] [address] Problems Date Description Provider Status Onset: 01/12/2014 Migraine without aura Levon Garcia M.D. Active Onset: 01/24/2016 Neck pain Manuelito Shea MD Active Onset: 01/24/2016 Vascular headache Manuelito Shea MD Active Onset: 11/05/2016 Localized, primary osteoarthritis Cecilia Edwards M.D. Active Onset: 11/05/2016 Acquired genu valgum Cecilia Edwards M.D. Active Onset: 02/04/2017 Arthroplasty of knee Cecilia Edwards M.D. Active Family History Date Family Member(s) Problem(s) Comments General Diabetes General Heart Disease General Hypertension Social History Type Date Description Comments Marital Status Lives With Spouse Occupation Disabled ETOH Use Never used alcohol Smoking Patient is a current smoker, started about 1997, smokes smokes every day 1 ppd Recreational Drug Use Denies Drug Use Daily Caffeine Consumes on average 1 pot of regular coffee per day Exercise Type/Frequency Exercises regularly Allergies, Adverse Reactions, Alerts Date Description Reaction Status Severity Comments 05/28/2012 Penicillins Rash active 05/28/2012 Iodine Respiratory difficulty active Severe Seafood 11/05/2016 Vicodin active Medications Medication Date Status Form Strength Qnty SIG Indications Ordering Provider Tramadol HCL 05/30/ Active Tablets 50mg 14tab 1 by mouth M50.90 Levon SDevika 2017 s twice a , as M.D. needed neck pain Albuterol Sulfate 05/28/ Active Nebulizer 0.63mg/3M 90uni inhale the [address] 2017 L ts contents Chamorro, of 1 vial M.D. via nebulizer every 4 to 6 hours as needed Azithromycin 05/28/ Active Tablets 250mg 6tabs take [address] 2017 on day 1 Chamorro, then 1 tab M.D. daily x 4 days Prednisone 05/28/ Hx Tablets 20mg QS 2 tab by [address] 2017 - mouth Chamorro, 06/06/ every day M.D. 2018 x3 days then 1 tab daily for 3 days, then 1/2 tab daily for 3 days Proair Respiclick 05/28/ Active Aerosol 108(90Bas 8.500 2 puffs by [address] 2017 e) gm mouth Chamorro, mcg/Act every 4-6 M.D. hours as needed Compression 01/28/ Active Misc 1unit - M25.461 Cecilia Kelly 2016 s rle Jerry, swelling/e M.D. anival- need thigh high Gabapentin 07/06/ Active Capsules 300mg 90cap 1po [facility] G43.009 Levon De Santiago 2017 s Rafael Garcia Nabumetone 07/06/ Active Tablets 500mg 30tab 1 by mouth G43.009 Levon De Santiago 2016 s every , morning M.D. Rizatriptan 01/12/ Active Tablets 10mg 10tab 1 tab by Levon De Santiago Benzoate 2013 s mouth at Radha, onset of M.D. migraine. may repeat 2 hours later as needed. use on no more than 2 days/wk. Gabapentin 05/28/ Active Tablets 600mg 90tab take one Levon De Santiago 2012 s tablet by Radha, mouth M.D. three times a day Amitriptyline HCL / Active Tablets 50mg 60tab take two Levon De Santiago s tablets by Radha mouth at M.D. bedtime as needed Clindamycin HCL 01/28/ Hx Capsules 150mg 42cap take one Z47.1 Cecilia 2016 - tab 3 Jerry, 05/28/ times a M.D. 2017 day for 2 weeks Cyclobenzaprine 01/07/ Hx Tablets 10mg 60tab take 1 tab M25.461 Cecilia HCL 2016 by mouth 2 Jerry, 05/28/ times a M.D. 2017 day as needed Cephalexin 01/07/ Hx Tablets 500mg 30tab 1 by mouth M25.461 Cecilia 2016 four times Jerry, 01/25/ a day M.D. 2016 Oxycodone HCL 12/25/ Hx Tablets 5mg 28tab 1 tab by Cecilia 2016 mouth Jerry, 01/25/ every 4 M.D. 2017 hours as needed for severe pain Coumadin 12/21/ Hx Tablets 2mg 90tab take 1-3 Cecilia 2016 tabs by Jerry, 01/25/ mouth at 5 M.D. 2017 at night as directed Colace 12/17/ Hx Capsules 100mg 90cap 1 tab by Cecilia 2016 mouth 2-3 Jerry, 05/28/ times a M.D. 2017 day as needed Percocet 11/05/ Hx Tablets 5-325mg 60tab 1 tabs by M25.561 Cecilia 2016 mouth Jerry, 05/28/ every 6 M.D. 2018 hours as needed for post-op pain. Topiramate 09/04/ Hx Tablets 100mg 75tab 1 by mouth Levon De Santiago 2013 every , 01/22/ morning M.D. 2015 and 1 and / every night at bedtime- not currently taking Sumatriptan 09/04/ Hx Tablets 100mg 10tab 1 tab Levon De Santiago Succinate 2013 twice a , 01/12/ day max 2 M.D. 2013 days a week Ondansetron 09/04/ Hx Tablets 8mg 90tab 1 by mouth Argenis 2013 three Gnadt, PIANO TUNER 01/22/ times a 2015 day as needed Fluoxetine / Hx Capsules 20mg 90cap 1 po qd Unknown 0000 - s 2015 Oxymorphone / Hx Tablets ER 10mg 1 po q 12h Unknown Hydrochloride ER 0000 - 12HR 2013 Oxycodone HCL / Hx Tablets 5mg 80tab 1 tab po 6 Unknown 0000 - s times 09/03/ daily as 2013 needed Gabapentin / Hx Tablets 600mg 270ta 1 po tid Unknown 0000 - bs 2013 Topiramate / Hx Tablets 25mg 120ta 4 po Qam 2 Levon S. 0000 - bs po qpm Radha 09/04/ Rafael 2013 Magnesium Oxide / Hx Capsules 400mg 30cap 2 by mouth Unknown 0000 - s every day 2015 Vitamin B-2 / Hx Tablets 100mg 4 tabs by Unknown 0000 - mouth 06/25/ every day 2016 Butalbital/Acetam / Hx Tablets 50-325-40 100ta take 1-2 Unknown inophen/Caffeine 0000 - mg bs tablets by 2013 every 6 hours if needed maximum daily dose of 6 Vicodin / Hx Tablets 5-300mg take 1 by Unknown 0000 - mouth 01/22/ every 6 2016 hours as needed Methocarbamol / Hx Tablets 750mg 1 by mouth Unknown 0000 - 4 times 06/25/ daily as 2017 needed Medications Administered in Office Medication Date Status Form Strength Qnty SIG Indications Ordering Provider Depomedrol Administered Injection Cecilia 40MG Jimi Edwards M.D. Immunizations CPT Code Status Date Vaccine Lot # [id number] Given 11/22/2016 Influenza Virus Vaccine, Quadrivalent, Split, [id number] Preservative Free Vital Signs Date Vital Result Comment 05/30/2017 Height 73 inches 6'1" Weight 244.50 lb Heart Rate 86 /min BP Systolic 138 mmHg BP Diastolic 102 mmHg BMI (Body Mass Index) 32.3 kg/m2 05/28/2017 Weight 245.00 lb Heart Rate 85 /min BP Systolic Sitting 150 mmHg BP Diastolic Sitting 82 mmHg Body Temperature 97.7 F O2 % BldC Oximetry 96 % 02/04/2017 Height 73 inches 6'1" Weight 236.00 lb Respiratory Rate 16 /min BMI (Body Mass Index) 31.1 kg/m2 01/28/2017 Height 73 inches 6'1" Weight 236.00 lb Heart Rate 94 /min BP Systolic 151 mmHg BP Diastolic 78 mmHg Body Temperature 96.7 F BMI (Body Mass Index) 31.1 kg/m2 01/07/2017 Height 73 inches 6'1" Weight 236.00 lb BP Systolic 142 mmHg BP Diastolic 96 mmHg Body Temperature 97.2 F Pain Level 6 BMI (Body Mass Index) 31.1 kg/m2 12/28/2016 Height 73 inches 6'1" Weight 235.00 lb BP Systolic 120 mmHg BP Diastolic 70 mmHg Respiratory Rate 20 /min Body Temperature 97.6 F Pain Level 10 BMI (Body Mass Index) 31.0 kg/m2 12/17/2016 Height 73 inches 6'1" Weight 235.00 lb BP Systolic 128 mmHg BP Diastolic 76 mmHg Respiratory Rate 20 /min Body Temperature 97.1 F Pain Level 6 BMI (Body Mass Index) 31.0 kg/m2 11/22/2016 Height 73 inches 6'1" Weight 235.00 lb Heart Rate 62 /min BP Systolic Sitting 118 mmHg BP Diastolic Sitting 80 mmHg O2 % BldC Oximetry 98 % BMI (Body Mass Index) 31.0 kg/m2 11/05/2016 Height 73 inches 6'1" Weight 235.00 lb Heart Rate 76 /min BP Systolic 126 mmHg BP Diastolic 80 mmHg Body Temperature 97.5 F Pain Level 10 BMI (Body Mass Index) 31.0 kg/m2 07/06/2016 Height 73 inches 6'1" Weight 230.00 lb Heart Rate 72 /min BP Systolic Sitting 130 mmHg BP Diastolic Sitting 78 mmHg Respiratory Rate 17 /min BMI (Body Mass Index) 30.3 kg/m2 01/24/2016 Height 73 inches 6'1" Weight 237.00 lb Heart Rate 82 /min BP Systolic Sitting 128 mmHg BP Diastolic Sitting 88 mmHg BMI (Body Mass Index) 31.3 kg/m2 10/26/2015 Height 73 inches 6'1" Weight 220.00 lb Heart Rate 66 /min BP Systolic 154 mmHg BP Diastolic 68 mmHg BMI (Body Mass Index) 29.0 kg/m2 09/29/2014 Height 73 inches 6'1" Weight 228.00 lb Heart Rate 64 /min BP Systolic Sitting 118 mmHg BP Diastolic Sitting 86 mmHg Respiratory Rate 16 /min BMI (Body Mass Index) 30.1 kg/m2 01/12/2014 Height 73 inches 6'1" Weight 274.50 lb Heart Rate 80 /min BP Systolic Sitting 110 mmHg BP Diastolic Sitting 70 mmHg Respiratory Rate 16 /min BMI (Body Mass Index) 36.2 kg/m2 09/04/2013 Height 73 inches 6'1" Weight 290.00 lb Heart Rate 90 /min BP Systolic Sitting 98 mmHg BP Diastolic Sitting 70 mmHg Respiratory Rate 16 /min BMI (Body Mass Index) 38.3 kg/m2 05/28/2012 Heart Rate 75 /min BP Systolic Sitting 140 mmHg BP Diastolic Sitting 88 mmHg Respiratory Rate 18 /min Results Test Date Test Result H/L Range Note Urine Culture And 12/17/2016 Urine Culture SEE RESULT BELOW 1 Sensitivities Type & Screen 12/17/2016 Patient Blood O Positive Type Antibody Screen NEGATIVE Laboratory test finding 12/17/2016 Partial Thrombo Time 32.4 seconds 26.0 -36.3 PTT Inr/Protime 12/17/2016 Inr 0.89 0.89-1.11 Comp Metabolic Panel 12/17/2016 Sodium 138 mmol/L 133-145 Potassium 4.4 mmol/L 3.5-5.0 Chloride 103 mmol/L 101-111 Co2 Carbon Dioxide 31 mmol/L 22-32 Anion Gap 4 mmol/L 2-11 Glucose 79 mg/dL 70-100 Blood Urea Nitrogen 11 mg/dL 6-24 Creatinine 1.01 mg/dL 0.67-1.17 BUN/Creatinine Ratio 10.9 8-20 Calcium 9.3 mg/dL 8.6-10.3 Total Protein 7.3 g/dL 6.4-8.9 Albumin 4.0 g/dL 3.2-5.2 Globulin 3.3 g/dL 2-4 Albumin/Globulin Ratio 1.2 1-3 Total Bilirubin 0.40 mg/dL 0.2-1.0 Alkaline Phosphatase 73 U/L 34-104 Alt 45 U/L 7-52 Ast 34 U/L 13-39 Egfr Non- 77.9 >60 Egfr 100.2 >60 2 CBC No Diff 12/17/2016 White Blood Count 7.2 10^3/uL 3.5-10.8 Red Blood Count 4.58 10^6/uL 4.0-5.4 Hemoglobin 14.4 g/dL 14.0-18.0 Hematocrit 42 % 42-52 Mean Corpuscular Volume 92 fL 80-94 Mean Corpuscular Hemoglobin 31 pg 27-31 Mean Corpuscular HGB Conc 34 g/dL 31-36 Red Cell Distribution Width 14 % 10.5-15 Platelet Count 232 10^3/uL 150-450 Mean Platelet Volume 9 um3 7.4-10.4 Urinalysis Profile 12/17/2016 Urine Color Yellow Urine Appearance Clear Urine Specific [place] 1.011 1.010-1.030 Urine pH 7.0 5-9 Urine Urobilinogen Negative Negative Urine Ketones Negative Negative Urine Protein Negative Negative Urine Leukocytes Negative Negative Urine Blood Negative Negative Urine Nitrite Negative Negative Urine Bilirubin Negative Negative Urine Glucose Negative Negative 1 SEE RESULT BELOW Name: MANUELITO PRICE SR : [address]: Cecilia Edwards MD Acct: [id number] Unit: [id number] AGE: 51 Location: PAT Re12/17/16 SEX: M Status: REG REF SPEC: [id number] ABBY: 12/17/16 [facility] [address]: Cecilia Edwards MD REQ: [id number] RECD: 12/17/160694 STATUS: ERIC JAUREGUI DR: Jose Burnett PIANO TUNER _ SOURCE: URINE SPDESC: ORDERED: Urine Culture QUERIES: Urine Source: Clean Catch Procedure Result Reported Site Urine Culture Final 12/18/16- 1207 ML No growth of clinically significant organisms * ML - MAIN LAB ([facility]) . END OF REPORT * ML=Testing performed at Main Lab DEPARTMENT OF PATHOLOGY, [address] [place] [address] Scott Sanchez M.D. Director [facility] # [id number] 2 Because ethnic data is not always readily available, this report includes an eGFR for both -Americans and non- Americans. The National Kidney Disease Education Program (NKDEP) does not endorse the use of the MDRD equation for patients that are not between the ages of 18 and 70, are , have extremes of body size, muscle mass, or nutritional status, or are non- or non-. According to the National Kidney Foundation, irrespective of diagnosis, the stage of the disease is based on the level of kidney function: Stage Description GFR(mL/min/1.73 m(2)) 1 Kidney damage with normal or decreased GFR 90 2 Kidney damage with mild decrease in GFR 60-89 3 Moderate decrease in GFR 30-59 4 Severe decrease in GFR 15-29 5 Kidney failure <15 (or dialysis) Procedures Date CPT Code Description Status 12/24/2016 66493 TKR Total Knee Replacement Completed 12/24/2016 05908 TKR Total Knee Replacement Completed 11/22/2016 09000 EKG Tracing & Interpretation Completed 11/05/2016 14863 Inject/Drain Joint/Bursa Major Completed 10/26/2015 14027 Rad Exam; Spine, Cervical Completed Encounters Type Date Location Provider CPT E/M Dx Office Visit 11/22/2016 2:20p [facility] [place] [address] Z01.[address] [place] [address] M25.461 Z23 Z13.220 G43.009 G40.409 I49.5 Office Visit 11/05/2016 8:30a [facility] Cecilia Edwards M.D. 41176 M25.561 [facility]. M17.11 M25.461 M21.061 Office Visit 07/06/2016 2:45p [facility] Levon Garcia 20456 M54.2 Rafael G43.009 Office Visit 01/24/2016 9:30a [facility] [address] M50.90 M50.921 M50.922 M50.923 R51 Office Visit 10/26/2015 11:00a [facility] [place] [address] M54.2 [facility] S40.021A Office Visit 09/29/2014 9:45a [facility] Levon De Santiago 95759 346.10 Rafael Garcia Office Visit 01/12/2014 10:45a [facility] Levon De Santiago [address] 346.10 Services Of Juliana Garcia M.D. Office Visit 09/04/2013 10:30a [facility] Levon De Santiago [address]39 346.10 Services Of Juliana Garcia M.D. Office Visit 08/03/2013 9:22a [facility] [place], [address] 346.91 Services Of Juliana Hall 345.90 Office Visit 08/03/2013 4:27p [facility] [address] 345.10 Hospitalists N[facility]P. 346.10 786.51 784.0 Office Visit 08/02/2013 4:25p [facility] [address] 345.10 Hospitalists 346.10 786.51 784.0 Office Visit 05/28/2012 1:00p [facility] Levon Garcia, [address] 346.10 Services Of [facility] Rafael 780.2 Plan of Care Future Appointment(s):11/29/2017 2:45 pm - Levon Garcia M.D. at [facility]206/04/2017 10:40 am - Jose Burnett NP at [facility] Internal [facility]05/30/2017 - Levon Garcia M.D.G43.009 Migraine w/o aura , not intractable, w/o status migrainosusFollow up:6 dmscfoZ89.90 Cervical disc disorder, unsp, unspecified cervical regionNew Medication:Tramadol HCL 50 mgReferral:Demetri Villela MD, Physical Medicine/Rehab
--- OUTSIDE RECORDS SUMMARY | 2017-05-30 13:07 | XMS REPORT ---
:1965 External Reference #:[id number] Author Organization [facility] Address [address] [place] [address] Phone [phone] Care Team Providers Name Role Phone Garett Aquino MD Primary Care Physician Unavailable Payers Type Date Identification Numbers Payment Provider Subscriber Commercial Policy Number: [id number] [facility] [employer] Price Group Number: [id number] [address] PayID: [id number] [place] [address] Problems Date Description Provider Status Onset: 01/12/2014 [...] Form Strength Qnty SIG Indications Ordering Provider Albuterol 05/28 Active Nebulizer 0.63mg/3M 90uni inhale R05 Hayley Sulfate L ts the Rafael Chamorro contents of 1 vial via nebulizer every 4 to 6 hours as needed Azithromycin 05/28 Active Tablets 250mg 6tabs take 2 tab on Rafael Chamorro day 1 then 1 tab daily x 4 days Prednisone 05/28 Hx Tablets 20mg QS 2 tab by R0 mouth Rafael Chamorro - every day 06/06 x3 days /2017 then 1 tab daily for 3 days, then 1/2 tab daily for 3 days Proair 05/28 Active Aerosol 108(90Bas 8.500 2 puffs R0 Hayley Respiclick e) gm by mouth Rafael Chamorro mcg/Act every 4-6 hours as needed Compression 01/28 Active Misc 1unit - M25.461 Cecilia Stock s rle Rafael Edwards swelling/ edema- need thigh high Gabapentin 07/06 Active Capsules 300mg 90cap 1po [facility] G43.009 Levon S. /2016 s Rafael Garcia Nabumetone 07/06 Active Tablets 500mg 30tab 1 by G43.009 Levon S. /2016 s mouth Radha, every M.D. morning Rizatriptan 01/12 Active Tablets 10mg 10tab 1 tab PO Levon S. Benzoate /2013 Dispers s at onset Radha of Jeanna.D. migraine. May repeat 2 hours later as needed. Use on no more than 2 days/wk. Gabapentin 05/28 Active Tablets 600mg 90tab take one Anthony s tablet by Rafael Blackwood mouth three times a day Amitriptyline Active Tablets 50mg 60tab Take Two Levon S. HCL / s Tablets Radha, By Deanna SalasDDevika At Bedtime as Needed Clindamycin HCL 01/28 Hx Capsules 150mg 42cap take one Z47.1 Cecilia s tab 3 Rafael Edwards - times a 05/28 day for weeks Cyclobenzaprine 01/07 Hx Tablets 10mg 60tab take 1 M25.461 Cecilia s tab by Rafael Edwards - mouth 2 05/28 times day as needed Cephalexin 01/07 Hx Tablets 500mg 30tab 1 by M25.461 Cecilia s deanna Edwards M.D. - four 01/25 times day Oxycodone HCL 12/25 Hx Tablets 5mg 28tab 1 tab by Cecilia s deanna Edwards M.D. - every 4 01/25 hours needed for severe pain Coumadin 12/21 Hx Tablets 2mg 90tab take 1-3 Cecilia s tabs by Rafael Edwards - mouth at 01/25 5 at night as directed Colace 12/17 Hx Capsules 100mg 90cap 1 tab by Cecilia s mouth 2-3 Rafael Edwards - times a 05/28 day needed Percocet 11/05 Hx Tablets 5-325mg 60tab 1 tabs by M25.561 Cecilia s deanna Edwards M.D. - every 6 05/28 hours needed for post-op pain. Topiramate 09/04 Hx Tablets 100mg 75tab 1 by Levon De Santiago s mouth Radha, - every M.D. 01/22 and 1 and 1/2 every night at bedtime- not currently taking Sumatriptan 09/04 Hx Tablets 100mg 10tab 1 tab Levon Bernstein s twice a Radha, - day max 2 M.D. 01/12 days week Ondansetron 09/04 Hx Tablets 8mg 90tab 1 by Argenis Dispers s mouth Gnadt, [employer] - three 01/22 times day as needed Fluoxetine Hx Capsules 20mg 90cap 1 po qd Unknown /0000 s - 10/24 Oxymorphone Hx Tablets ER 10mg 1 po q Unknown Hydrochloride ER /0000 12HR 12h - 09/03 Oxycodone HCL Hx Tablets 5mg 80tab 1 tab po Unknown /0000 s 6 times - daily as 09/03 Gabapentin Hx Tablets 600mg 270ta 1 po tid Unknown /0000 bs - 11/06 /2014 Topiramate Hx Tablets 25mg 120ta 4 po Qam Levon S. /0000 bs 2 po qpm Thompson Garcia M.D. 09/04 Magnesium Oxide Hx Capsules 400mg 30cap 2 by Unknown /0000 s mouth - every day 01/22 Vitamin B-2 Hx Tablets 100mg 4 tabs by Unknown /0000 mouth - every day 06/25 Butalbital/Aceta Hx Tablets 50-325-40 100ta take 1-2 Unknown minophen/Caffein /0000 mg bs tablets e - by mouth 09/04 every hours if needed maximum daily dose of 6 Vicodin Hx Tablets 5-300mg take 1 by Unknown /0000 mouth - every 6 01/22 hours needed Methocarbamol Hx Tablets 750mg 1 by Unknown /0000 mouth 4 - times 06/25 daily needed Medications Administered in Office Medication Date Status Form Strength Qnty SIG Indications Ordering Provider Depomedrol Administered Injection Cecilia 40MG Jimi Edwards M.D. Immunizations CPT Code Status Date Vaccine Lot # [id number] Given 11/22/2016 Influenza Virus Vaccine, Quadrivalent, Split, [id number] Preservative Free Vital Signs Date Vital Result Comment 05/28/2017 Weight 245.00 lb Heart Rate 85 [...] Color Yellow Urine Appearance Clear Urine Specific Falcon 1.011 1.010-1.030 Urine pH 7.0 5-9 Urine Urobilinogen Negative Negative Urine Ketones Negative Negative Urine Protein Negative Negative Urine Leukocytes Negative Negative Urine Blood Negative Negative Urine Nitrite Negative Negative Urine Bilirubin Negative Negative Urine Glucose Negative Negative 1 SEE RESULT BELOW Name: MANUELITO PRICE Jeff ZENDEJAS : [address]: Cecilia Edwards MD Acct: [id number] Unit: [id number] AGE: 51 Location: [facility] Re12/17/16 SEX: M Status: REG REF SPEC: [id number] ABBY: 12/17/[address] [facility] [address]: Cecilia Edwards MD REQ: [id number] RECD: 12/17/16 STATUS: ERIC JAUREGUI DR: Jose Burnett [employer] _ SOURCE: URINE SPDESC: ORDERED: Urine Culture QUERIES: Urine Source: Clean Catch Procedure Result Reported Site Urine Culture Final 12/18/16- 1207 ML No growth of clinically significant organisms * ML - MAIN LAB (PSC1) . END OF REPORT * ML=Testing performed at Main Lab DEPARTMENT OF PATHOLOGY, [address] [place] [address] Scott Sanchez M.D. Director [facility] # [id number] 2 Because ethnic data is not always [...] Procedures Date CPT Code Description Status 12/24/2016 13480 TKR Total Knee Replacement Completed 12/24/2016 41186 TKR Total Knee Replacement Completed 11/22/2016 97808 EKG Tracing & Interpretation Completed 11/05/201607265 Inject/Drain Joint/Bursa Major Completed 10/26/2015 77947 Rad Exam; Spine, Cervical Completed Encounters Type Date Location Provider CPT E/M Dx Office Visit 11/22/2016 2:20p [facility] [place] [address] Z01.818 [place] M25.461 Z23 Z13.220 G43.009 G40.409 I49.5 Office Visit 11/05/2016 8:30a [facility] Cecilia Edwards M.D. 50457 M25.561 C.M.ADevika M17.11 M25.461 M21.061 Office Visit 07/06/2016 2:45p [facility] Levon Garcia 83162 M54.2 Rafael G43.009 Office Visit 01/24/2016 9:30a [facility] [address] M50.90 M50.921 M50.922 M50.923 R51 Office Visit 10/26/2015 11:00a [facility] [place] [address] M54.2 [facility] S40.021A Office Visit 09/29/2014 9:45a [facility] Levon De Santiago 32257 346.10 Rafael Gacria Office Visit 01/12/2014 10:45a [facility] Levon De Santiago 84819 346.10 Services Of Juliana Garcia M.D. Office Visit 09/04/2013 10:30a [facility] Levon De Santiago 85747 346.10 Services Of Juliana Garcia M.D. Office Visit 08/03/2013 9:22a [facility] Wong Childers, [address]12 346.91 Services Of [facility] Rafael 345.90 Office Visit 08/03/2013 4:27p [facility], [address] 345.10 Hospitalists N.P. 346.10 786.51 784.0 Office Visit 08/02/2013 4:25p [facility] [address] 345.10 Hospitalists 346.10 786.51 784.0 Office Visit 05/28/2012 1:00p [facility] Levon Garcia 268[address] 346.10 Services Of [facility] Rafael 780.2 Plan of Care Future Appointment(s):06/04/2017 10:40 am - Jose Burnett NP at [facility] Internal Medicine - Cngopropk05/05/2018 9:15 am - [facility] - Hayley Chamorro M.D.R05 CoughNew Medication: Albuterol Sulfate 0.63 mg/3MLAzithromycin 250 mgPrednisone 20 mgProair Respiclick 108(90 Base) mcg/ActNew Orders:Nebulizer TreatmentComments:use tylenol for pain or fever , avoid mloocrmwkzblvM44.0 Elevated blood-pressure reading, w/o diagnosis of htnComments:your blood pressure is running high which needs to be followed up onFollow up:1 week with Jose Burnett
[2017-05-30] MEDS ORDERED: Promethazine TAB* 25 MG PO ONE (13:50)
[2017-05-30] MEDS ORDERED: diPHENhydraMINE PO* 25 MG PO ONE (13:50)
[2017-05-30] MEDS ORDERED: Naproxen TAB* 250 MG PO ONE (13:50)
[2017-05-30 14:14] VITALS: BP 149/81
--- NOTE | 2017-05-30 19:16 | ED ---
Jasmyn Morales Gabriel, scribed for Master Sue MD on 05/30/17 at 1354 . Back Pain - HPI Summary HPI Summary: This patient is a 51 year old M [facility] c/o HTN that was high at his PCP, (148/102). He went home when he his chronic back pain began acting up and his suggested he call EMS. The patient rates the pain 7/10 in severity. Patient reports VALENTIN, back pain, blurry vision, left sided facial numbness, neck pain, muscle spasms, and myalgia. Patient denies CP and SOB. Pt was doing heavy lifting at work yesterday he has two upcoming appointments for a MRI next week and pain management for chronic back pain. VALENTIN feels similar to margarines but slightly worse. Hx migraines. No diagnoses of HTN. - History of Current Complaint Chief Complaint: EDHypertension Stated Complaint: HEADACHE Hx Obtained From: Patient Onset/Duration: Still Present Onset/Duration: Still Present Timing: Constant Severity Initially: Moderate Severity Currently: Moderate Pain Intensity: 6 Pain Scale Used: 0-10 Numeric Character: Spasmodic Associated Signs And Symptoms: Positive: Negative - CP and SOB, Other - VALENTIN, back pain, blurry vision, left sided facial numbness, neck pain, muscle spasms, and myalgia. - Allergies/Home Medications Allergies/Adverse Reactions: Allergies Allergy/AdvReac Type Severity Reaction Status Date / Time MS Iodine [Iodine] Allergy Intermediate Rash Verified 12/24/16 08:56 MS Latex [Latex] Allergy Intermediate Rash Verified 12/24/16 08:56 MS Penicillins [Penicillins] Allergy Unknown Unknown Verified 12/24/16 08:56 Reaction Details PMH/Surg Hx/FS Hx/Imm Hx Endocrine/Hematology History: Denies: Hx Diabetes, Hx Thyroid Disease Cardiovascular History: Denies: Hx Hypertension, Hx Pacemaker/ICD, Other Cardiovascular Problems/ Disorders Respiratory History: Reports: Hx Chronic Obstructive Pulmonary Disease (COPD) Denies: Hx Asthma GI History: Denies: Hx Ulcer History: Denies: Hx Renal Disease Musculoskeletal History: Reports: Hx Arthritis - back, knees and hands, Hx Back Problems Sensory History: Reports: Hx Contacts or Glasses - glasses Denies: Hx Hearing Aid Opthamlomology History: Reports: Hx Contacts or Glasses - glasses Neurological History: Reports: Hx Headaches, Hx Migraine - 1 per month with stress, Hx Seizures - last one 5 yrs ago from fall, Other Neuro Impairments/ Disorders Psychiatric History: Denies: Hx Panic Disorder, Other Psychiatric Issues/Disorders - Surgical History Surgery Procedure, Year, and Place: HX SEIZURES/ MIGRAINES. 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 Negative: Chest Pain Negative: Shortness Of Breath Positive: Myalgia - back pain, neck pain, muscle spasm,, Other - back pain, neck pain, musle spasm, Positive: Headache, Numbness - facial left sided All Other Systems Reviewed And Are Negative: Yes Physical Exam - Summary Physical Exam Summary: Appearance: Well appearing, no pain distress Skin: warm, dry, reflects adequate perfusion Head/face: normal Eyes: EOMI, MIRIAM, nystagmus ENT: mucous membranes are dry Neck: supple, non-tender Respiratory: diminished breath sounds with scant wheezing Cardiovascular: RRR, pulses symmetrical Abdomen: non-tender, soft Bowel Sounds: present Musculoskeletal: normal, strength/ROM intact Neuro: normal, sensory motor intact, A&Ox3 Triage Information Reviewed: Yes Vital Signs On Initial Exam: Initial Vitals Temp Pulse Resp BP Pulse Ox 97.2 F 82 18 140/82 97 05/30/17 13:14 05/30/17 13:14 05/30/17 13:14 05/30/17 13:14 05/30/17 13:14 Vital Signs Reviewed: Yes Diagnostics - Vital Signs Vital Signs Temp Pulse Resp BP Pulse Ox 05/30/17 13:14 97.2 F 82 18 140/82 97 - Laboratory Lab Statement: Any lab studies that have been ordered have been reviewed, and results considered in the medical decision making process. Back Pain Course/Dx - Course Course Of Treatment: HTN is not really his presentation but rather VALENTIN and musculoskeletal complaints. He has chronic pain with pending pain mgmt consult. Tx with oral meds at his request. D/C in good cond with nl BP. - Diagnoses Provider Diagnoses: Chronic back pain, Migraine headache Discharge - Sign-Out/Discharge Documenting (check all that apply): Discharge - home - Discharge Plan Condition: Good Disposition: HOME Prescriptions: Metaxalone TAB* [Skelaxin TAB*] 800 mg PO TID PRN #15 tab PRN Reason: muscle pain Promethazine TAB* [Phenergan Tab*] 25 mg PO Q6H PRN #20 tab PRN Reason: Headache Patient Education Materials: Migraine Headache (ED), Chronic Back Pain (ED) Referrals: Jose Burnett NP [Primary Care Provider] - Additional Instructions: Stay well hydrated. Do not drive today. See your pain management as scheduled next week. Return if worse, new symptoms or other concerns. - Billing Disposition and Condition Condition: GOOD Disposition: HOME The documentation as recorded by the Jasmyn hinson Gabriel accurately reflects the service I personally performed and the decisions made by me, Master Sue MD.
== END 2017-05-30 14:12 | disposition home or self-care (01) ==
LOC: ED 12:38
DX: G43.909 Migraine, unspecified, not intractable, without status migrainosus (principal); G89.29 Other chronic pain; R51 Headache; I10 Essential (primary) hypertension; F17.210 Nicotine dependence, cigarettes, uncomplicated; H53.8 Other visual disturbances; M54.2 Cervicalgia; M54.9 Dorsalgia, unspecified
CPT/HCPCS: 99282; A9270-GY

== ENCOUNTER 2018-06-05 19:54 | Emergency (ER) | payer BC ==
[2018-06-05 20:39] VITALS: BP 139/86
[2018-06-05] MEDS ORDERED: Albuterol/Ipratropium NEB.SOL* Albuterol 2.5 MG/Ipratropium 0.5 MG 3 ML INH ONE (21:41)
[2018-06-05] MEDS ORDERED: predniSONE TAB* 20 MG PO ONE (21:41)
[2018-06-05] MEDS ORDERED: DOXYcycline CAP(*) 100 MG PO ONE (22:17)
[2018-06-05] MEDS ORDERED: Albuterol HFA INHALER* 8 gm MDI INH ONE (22:18)
--- NOTE | 2018-06-05 22:18 | UC ---
Respiratory Complaint HPI - HPI Summary HPI Summary: 52 y/o male presents to the urgent care c/o C/O FEVER, PRODUCTIVE COUGH OF GREEN PHLEGM X3 WEEKS. HAS VOMITED TWICE IN THE LAST 3 WEEKS. - History of Current Complaint Chief Complaint: UCRespiratory Stated Complaint: COUGH,FEVER Time Seen by Provider: 06/05/18 21:30 Hx Obtained From: Patient Onset/Duration: Gradual Onset, Lasting Weeks - 3 weeks, Still Present, Worse Since - 2 days Timing: Intermittent Episodes Severity Initially: Mild Severity Currently: Moderate Pain Intensity: 2 Pain Scale Used: 0-10 Numeric Character: Cough: Productive, Sputum Description: - green Aggravating Factors: Recumbent Position Alleviating Factors: OTC Meds Associated Signs And Symptoms: Positive: Chills, Wheezing - for the past 2 days , URI, Nasal Congestion, Sinus Discomfort. Negative: Dizziness - Risk Factors Pulmonary Embolism Risk Factors: Negative Cardiac Risk Factors: Negative Pseudomonas Risk Factors: Negative Tuberculosis Risk Factors: Negative - Allergies/Home Medications Allergies/Adverse Reactions: Allergies Allergy/AdvReac Type Severity Reaction Status Date / Time iodine AdvReac Intermediate Rash Verified 06/05/18 20:39 latex AdvReac Intermediate Rash Verified 06/05/18 20:39 Penicillins AdvReac Unknown Unknown Verified 06/05/18 20:39 Reaction Details Home Medications: Home Medications Phenylephrine/Dm/Acetaminop/GG [Mucinex Fglf-Cdn-Heiygrsfcg Lq] 1 liq PO PRN 01/13 [History] PMH/Surg Hx/FS Hx/Imm Hx Previously Healthy: Yes Respiratory History: COPD - Surgical History Surgical History: Yes Surgery Procedure, Year, and Place: TOTAL KNEE RIGHT REPLACEMENT - Family History Known Family History: Positive: Hypertension, Respiratory Disease - Social History Occupation: Employed Full-time Lives: With Family Alcohol Use: None Alcohol Amount: sober 5 yrs Substance Use Type: None 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 Smoking Status (MU): Current Every Day Smoker Type: Cigarettes Amount Used/How Often: <1 ppd Length of Time of Smoking/Using Tobacco: 15 years Have You Smoked in the Last Year: Yes Household Exposure Type: Cigarettes - Immunization History Most Recent Influenza Vaccination: 2017 Most Recent Tetanus Shot: within 10 years Most Recent Pneumonia Vaccination: never Review of Systems All Other Systems Reviewed And Are Negative: Yes Constitutional: Positive: Negative Skin: Positive: Negative Eyes: Positive: Negative ENT: Positive: Nasal Discharge - green, Sinus Congestion, Sinus Pain/Tenderness Respiratory: Positive: Cough - productive w/ green phlegm, Other - wheezing x 2 days Cardiovascular: Positive: Negative Gastrointestinal: Positive: Negative Genitourinary: Positive: Negative Motor: Positive: Negative Neurovascular: Positive: Negative Musculoskeletal: Positive: Negative Neurological: Positive: Negative Psychological: Positive: Negative Is Patient Immunocompromised?: No Physical Exam - Summary Physical Exam Summary: Vital Signs Reviewed: Yes General: well developed, well nourished male sitting in the examining table w/o any apparent distress Eyes: Positive: Conjunctiva Clear - PERRLA, EOMI, fundi grossly normal ENT: Positive: Normal ENT inspection, Hearing grossly normal, Pharynx normal, Nasal congestion - edematous and erythematous nasal mucosa, Nasal drainage - yellowish drainage, TMs normal. Negative: Tonsillar swelling, Tonsillar exudate Neck: Positive: Supple, Nontender, No Lymphadenopathy Respiratory: no orthopnea or dyspnea. Able to speak in full sentences, no retractions or accessory muscle use, no tripod position, stridor, or head bobbing. Positive breath sounds bilaterally. diffuse scattered wheezing and rhonchi on b/L lungs, no crackles or rales. Cardiovascular: Positive: RRR, No Murmur, Pulses Normal, Brisk Capillary Refill Abdomen Description: Positive: Nontender, No Organomegaly, Soft. Negative: CVA Tenderness (R), CVA Tenderness (L) Bowel Sounds: Positive: Present Musculoskeletal Exam: Normal Musculoskeletal: Positive: Strength Intact, ROM Intact, No Edema Neurological Exam: Normal Psychological Exam: Normal Skin Exam: Normal Triage Information Reviewed: Yes Vital Signs: Initial Vital Signs Temp 98.1 F 06/05/18 20:34 Pulse 75 06/05/18 20:34 Resp 16 06/05/18 20:34 BP 139/86 06/05/18 20:34 Pulse Ox 99 06/05/18 20:34 Respiratory Course/Dx - Course Course Of Treatment: Chest X-ray ordered to r/o pneumonia. Impression: findings of COPD, No active Cardiopulmonary disease observed. Final radiology reports will be done tomorrow.Pt with scattered wheezing on both lungs. O2sat: 99% Pt is a heavy smoker. Prednisone 60 mg PO ordered and Duoneb treatment ordered. Pt tolerated well medications and his lungs improved. Pt states feeling better. Pt will be tX for Acute Bronchitis, Rx Doxycycline PO , Prednisone taper dose and Inhaler. Strongly advised to f/u with his PCP for further management. Pt strongly advised to f/u w/ his PCP for further management on his COPD if not improvement of symptoms. PCP. Pt understood and agreed with D/C instructions and left the clinic hemodynamically stable. - Differential Dx/Diagnosis Differential Diagnosis/HQI/PQRI: Asthma, Bronchitis, Exacerbation Of COPD, Lower Resp Infection, Sinusitis, Other - pneumonia Provider Diagnosis: COPD with exacerbation, Bronchitis Discharge - Discharge Plan Condition: Stable Disposition: HOME Prescriptions: DOXYcycline CAP(*) [DOXYcycline 100MG CAP(*)] 100 mg PO BID #19 cap predniSONE TAB* [Deltasone 20 MG TAB*] 20 mg PO DAILY #8 tab Patient Education Materials: Acute Bronchitis (ED), COPD (Chronic Obstructive Pulmonary Disease) (ED) Referrals: [facility] [place] [facility] [Outside] - 3 Days Additional Instructions: 1- Take Prednisone PO taper dose as directed starting tomorrow. First loading dose given today. 2- Take Doxycycline PO as directed belwo, full course. First dose given tonight 3-Use the Duoneb nebulizer treatment or the albuterol inhaler to alleviate SOB, and wheezing as directed . Increase fluid intake, rest and eat well. 4- If symptoms do not improve or worsen or your develop SOB with fever and severe wheezing please go immediately to the ER further evaluation and treatment. 5- F/u with your PCP in 2-3 days for further management on your COPD - Billing Disposition and Condition Condition: STABLE Disposition: Home
--- NOTE | 2018-06-06 08:38 | UC ---
- Progress Note Progress Note: RADIOLOGY CXR REPORT REVIEWED. FINDINGS CONSISTENT WITH COPD, NO EVIDENCE FOR ACUTE FINDING. NO CHANGE IN MGMT. Course/Dx - Diagnoses Provider Diagnoses: COPD with exacerbation, Bronchitis Discharge - Sign-Out/Discharge Documenting (check all that apply): Post-Discharge Follow Up All imaging exams completed and their final reports reviewed: Yes - Discharge Plan Condition: Stable Disposition: HOME Prescriptions: DOXYcycline CAP(*) [DOXYcycline 100MG CAP(*)] 100 mg PO BID #19 cap predniSONE TAB* [Deltasone 20 MG TAB*] 20 mg PO DAILY #8 tab Patient Education Materials: Acute Bronchitis (ED), COPD (Chronic Obstructive Pulmonary Disease) (ED) Referrals: [facility] [Outside] - 3 Days Additional Instructions: 1- Take Prednisone PO taper dose as directed starting tomorrow. First loading dose given today. 2- Take Doxycycline PO as directed belwo, full course. First dose given tonight 3-Use the Duoneb nebulizer treatment or the albuterol inhaler to alleviate SOB, and wheezing as directed . Increase fluid intake, rest and eat well. 4- If symptoms do not improve or worsen or your develop SOB with fever and severe wheezing please go immediately to the ER further evaluation and treatment. 5- F/u with your PCP in 2-3 days for further management on your COPD - Billing Disposition and Condition Condition: STABLE Disposition: Home
== END 2018-06-05 22:45 | disposition home or self-care (01) ==
LOC: UCEAST 19:54
DX: J44.1 Chronic obstructive pulmonary disease with (acute) exacerbation (principal); R09.81 Nasal congestion; Z96.651 Presence of right artificial knee joint; Z88.0 Allergy status to penicillin; Z88.3 Allergy status to other anti-infective agents; Z91.040 Latex allergy status; F17.210 Nicotine dependence, cigarettes, uncomplicated
CPT/HCPCS: 71046; 99213; A9270-GY; G0463; J7512

== ENCOUNTER 2019-04-29 19:34 | Emergency (ER) | payer BC ==
[2019-04-29 20:44] VITALS: BP 135/93
--- NOTE | 2019-04-29 20:52 | UC ---
Ear Complaint HPI - HPI Summary HPI Summary: 53-year-old male who states that about 2 or 3 weeks ago he was outside working in the cold. The next day he had a small sore on his right earlobe which was itchy so he scratched it. Since then it has become more red and tender with some crusty honey colored drainage. He also was requesting refill of his albuterol inhaler as well as his nebulizer solution. He is concerned because he has a lump behind his right ear. He denies any fever or chills. He is a smoker. - History of Current Complaint Chief Complaint: UCGeneralIllness Stated Complaint: EAR, HEADACHE Time Seen by Provider: 04/29/19 20:51 Hx Obtained From: Patient Onset/Duration: Gradual Onset, Lasting Weeks Severity Initially: Mild Severity Currently: Mild Pain Intensity: 5 Aggravating Factors: Nothing Alleviating Factors: Nothing Associated Signs/Symptoms: Positive: Trauma to Ear - Patient had no specific direct trauma to his ear however he states he was out in cold weather 2 weeks ago and the next day he noticed a sore on his right ear which he attributes to being out in the cold. - Allergies/Home Medications Allergies/Adverse Reactions: Allergies Allergy/AdvReac Type Severity Reaction Status Date / Time iodine AdvReac Intermediate Rash Verified 04/29/19 20:37 latex AdvReac Intermediate Rash Verified 04/29/19 20:37 Penicillins AdvReac Unknown Unknown Verified 04/29/19 20:37 Reaction Details Home Medications: Home Medications Acetaminop/Codeine 30 MG TAB* [Tylenol/Codeine 30 MG TAB*] 1 tab PO Q4H PRN MDD 6 12/16/17 [History Confirmed 04/29/19] Amitriptyline TAB* [Elavil TAB*] 100 mg PO BEDTIME 12/16/17 [History Confirmed 04/29/19] Cyclobenzaprine TAB* [Flexeril 10 MG TAB*] 10 mg PO BID PRN 12/16/17 [History Confirmed 04/29/19] Gabapentin 600 mg PO TID 12/16/17 [History Confirmed 04/29/19] Gabapentin CAP(*) [Neurontin 300 CAP(*)] 300 mg PO BEDTIME 12/16/17 [History Confirmed 04/29/19] Rizatriptan Benzoate [[employer]] 10 mg PO DAILY PRN 12/16/17 [History Confirmed 04/29/19] Nabumetone TAB* [Relafen TAB*] 500 mg PO BID 07/22/18 [History Confirmed ] Buprenorphine 15 MCG PATCH(NF) [Butrans 15 MCG PATCH(NF)] 15 mcg TRANSDERM Q7D 02/19/19 [History Confirmed 04/29/19] Albuterol 2.5MG/3ML (0.083%)* [Ventolin 2.5 MG/3 ML NEB.CORRIE*] 2.5 mg INH Q4H PRN #30 units 04/29/19 [Rx] Mupirocin 2% OINT* [Bactroban 2 % Oint*] 1 applic TOPICAL BID #1 tube 04/29/19 [ Rx] Sulfamethox/Trimethoprim DS* [Bactrim DS 800/160 TAB*] 1 tab PO DAILY 7 Days # 13 tab 04/29/19 [Rx] PMH/Surg Hx/FS Hx/Imm Hx Previously Healthy: Yes Respiratory History: COPD Neurological History: Seizures - Surgical History Surgical History: Yes Surgery Procedure, Year, and Place: TOTAL KNEE RIGHT REPLACEMENT - Family History Known Family History: Positive: Hypertension, Respiratory Disease - Social History Alcohol Use: None Alcohol Amount: sober 5 yrs Substance Use Type: None 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 Smoking Status (MU): Current Every Day Smoker Type: Cigarettes Amount Used/How Often: 1 PPD Length of Time of Smoking/Using Tobacco: 15 years Have You Smoked in the Last Year: Yes Household Exposure Type: Cigarettes - Immunization History Most Recent Influenza Vaccination: 2017 Most Recent Tetanus Shot: within 10 years Most Recent Pneumonia Vaccination: never Review of Systems All Other Systems Reviewed And Are Negative: Yes Skin: Positive: Rash - Patient has a draining rash to his right earlobe Respiratory: Positive: Cough - Patient states he normally has some wheezing and that is no worse today however he ran out of his albuterol inhaler and would like a refill. Is Patient Immunocompromised?: No Physical Exam Triage Information Reviewed: Yes Appearance: Well-Appearing, No Pain Distress, Well-Nourished Vital Signs: Initial Vital Signs Temp 98.3 F 04/29/19 20:39 Pulse 88 04/29/19 20:39 Resp 16 04/29/19 20:39 BP 135/93 04/29/19 20:39 Pulse Ox 98 04/29/19 20:39 Vital Signs Reviewed: Yes Eyes: Positive: Conjunctiva Clear ENT: Positive: Pharynx normal, TMs normal, Uvula midline Neck: Positive: Supple, Nontender, Enlarged Nodes @ - Patient has a right post auricular lymph node enlargement. Respiratory: Positive: No respiratory distress, No accessory muscle use, Wheezing - Patient has mild extremity next 3 wheezing, but with good air movement throughout Cardiovascular: Positive: RRR, No Murmur, Pulses Normal, Brisk Capillary Refill Musculoskeletal Exam: Normal Neurological Exam: Normal Psychological Exam: Normal Skin: Positive: Other - Patient has some mild cellulitis to his right earlobe with some honey colored crusting and tenderness on palpation. Minimal swelling of the earlobe. He has a small postauricular lymph node enlargement. Ear Complaint Course/Dx - Course Course Of Treatment: Patient is comfortable here. He was given 1 dose of Bactrim. I also gave him a refill for his albuterol nebulizer treatments. He was given an albuterol inhaler here. He has no primary care provider therefore information regarding [facility] and physician referral service were given to the patient and he was encouraged to follow-up there. He's also to apply mupirocin ointment to the cellulitis and draining area on his ear. - Differential Dx/Diagnosis Provider Diagnosis: Bronchitis, Cellulitis of right earlobe Discharge ED - Sign-Out/Discharge Documenting (check all that apply): Patient Departure All imaging exams completed and their final reports reviewed: No Studies - Discharge Plan Condition: Good Disposition: HOME Prescriptions: Albuterol 2.5MG/3ML (0.083%)* [Ventolin 2.5 MG/3 ML NEB.CORRIE*] 2.5 mg INH Q4H PRN #30 units PRN Reason: Wheezing Mupirocin 2% OINT* [Bactroban 2 % Oint*] 1 applic TOPICAL BID #1 tube Sulfamethox/Trimethoprim DS* [Bactrim DS 800/160 TAB*] 1 tab PO DAILY 7 Days # 13 tab Patient Education Materials: Cellulitis (DC) Referrals: [facility] [Outside] [facility] [Outside] No Primary Care Phys,NOPCP [Primary Care Provider] - Additional Instructions: Stop smoking. Use your albuterol inhaler 2 puffs every 4-6 hours as needed for wheezing. Take the Bactrim with food. Follow-up with [facility] if no improvement in 3 or 4 days or if worsening symptoms. - Billing Disposition and Condition Condition: GOOD Disposition: Home
[2019-04-29] MEDS ORDERED: Albuterol HFA INHALER* 8 gm MDI INH ONE (20:59)
[2019-04-29] MEDS ORDERED: Sulfamethox/Trimethoprim DS 800/160* TAB PO ONE (20:59)
== END 2019-04-29 21:30 | disposition home or self-care (01) ==
LOC: UCEAST 19:34
DX: J40 Bronchitis, not specified as acute or chronic (principal); H60.11 Cellulitis of right external ear; F17.210 Nicotine dependence, cigarettes, uncomplicated; J44.9 Chronic obstructive pulmonary disease, unspecified; Z79.899 Other long term (current) drug therapy; Z88.0 Allergy status to penicillin; Z91.040 Latex allergy status; Z91.09 Other allergy status, other than to drugs and biological substances
CPT/HCPCS: 99212; A9270-GY; G0463

== ENCOUNTER 2024-01-03 14:18 | Observation (INO) ==
[2024-01-03] MEDS: Albuterol/Ipratropium NEB.SOL (2.5/0.5 MG) 3 ML NEB.SOLN INH ONE (15:13)
[2024-01-03] MEDS: levETIRAcetam 1000MG IVPREMIX 1,000 MG/100 ML BAG IVPB ONE (17:05)
[2024-01-03] MEDS: methylPREDNISolone SOD SUCC 125 mg 2 ML VIAL IV ONE (17:05)
[2024-01-03] MEDS: Lactated Ringers 1000 ml BAG 1,000 ML IV ONE (17:12)
[2024-01-03 17:15] LABS: ABS Lymphocytes 1.6 10^3/uL (1.0-4.8); ABS Monocytes 1.1 10^3/uL (0.0-1.1); ABS Neutrophils 5.5 10^3/uL (1.5-7.6); ABS Nucleated RBC 0.01 10^3/ul; Hemoglobin 13.2 g/dL (13.2-16.3); Lymphocyte % 19.2 %; Mean Corpuscular Hemoglobin 30.4 pg (27-33); Mean Corpuscular Hgb Conc 33.8 g/dL (31-36); Mean Corpuscular Volume 89.8 fL (80-97); Mean Platelet Volume 8.6 fL (7.5-11.2); Nucleated Red Blood Cells % 0.1 %/100WBC (0.0-0.8); Platelet Count 210 10^3/uL (150-450); Red Blood Count 4.34 10^6/uL (4.06-5.63); Red Cell Distribution Width 13.9 % (12-17); White Blood Count 8.2 10^3/uL (3.6-10.2)
[2024-01-03 18:01] LABS: Albumin 3.7 g/dL (3.2-5.2); Albumin/Globulin Ratio 1.2 (1-3); C Reactive Protein 128.43 mg/L (<8.01); Calcium 8.6 mg/dL (8.6-10.3); Creatinine, Serum 1.09 mg/dL (0.67-1.17); Globulin 3.1 g/dL (2-4); Magnesium 2.2 mg/dL (1.9-2.7); Potassium 4.6 mmol/L (3.5-5.0); Total Bilirubin 0.8 mg/dL (0.2-1.0); Total Protein 6.8 g/dL (6.4-8.9); eGFR CKD-EPI 78.7 (>60)
[2024-01-03] MEDS ORDERED: Albuterol/Ipratropium NEB.SOL (2.5/0.5 MG) 3 ML NEB.SOLN INH PRN (18:53)
[2024-01-03] MEDS ORDERED: Nicotine GUM 4MG FRUIT FLAVOR PO PRN (18:55)
[2024-01-03 19:11] LABS: High Sensitivity Troponin 1 Hr 5 pg/mL (<20)
[2024-01-03] MEDS: Nicotine PATCH 21 MG/24 HR PATCH TRANSDERM SCH (19:26)
[2024-01-03] MEDS: Albuterol/Ipratropium NEB.SOL (2.5/0.5 MG) 3 ML NEB.SOLN INH SCH (19:35)
[2024-01-03] MEDS: cefTRIAXone 1 gm/50 mL D5W 1 GM/50 ML BAG IV SCH (20:05)
[2024-01-03] MEDS: Azithromycin 500 mg/250 ml NS 500 MG/250 ML BAG IVPB SCH (20:06)
[2024-01-03] MEDS: Lactated Ringers 1000 ml BAG 1,000 ML IV SCH (20:21)
[2024-01-03 20:40] LABS: Urine Appearance Clear; Urine Bilirubin Negative (Negative); Urine Blood Negative (Negative); Urine Color Yellow; Urine Glucose Negative (Negative); Urine Ketones Negative (Negative); Urine Nitrite Negative (Negative); Urine Protein Negative (Negative); Urine Specific Gravity 1.017 (1.002-1.030); Urine Urobilinogen Negative (Negative)
[2024-01-03 21:05] LABS: Urine Bacteria Absent /HPF (Absent); Urine Red Blood Cell 1+(3-5/hpf) /HPF (0-Trace); Urine Squamous Epithelial Cell Present /HPF (Absent); Urine White Blood Cell 1+(6-10/hpf) /HPF (0-Trace)
[2024-01-03] MEDS: Enoxaparin 40 MG/0.4 ML SYR SUBCUT SCH (22:08)
[2024-01-03] MEDS: Buprenorp/Nalox 2-0.5 mg SL TB SL SCH (22:08)
[2024-01-03] MEDS: Iohexol 350 (CONTRAST) 500 ML MDV IV ONE (22:57)
[2024-01-04 07:09] LABS: ABS Lymphocytes 0.7 10^3/uL (1.0-4.8); ABS Monocytes 0.2 10^3/uL (0.0-1.1); ABS Neutrophils 6.8 10^3/uL (1.5-7.6); Hematocrit 37.7 % (38-53); Mean Corpuscular Hemoglobin 30.5 pg (27-33); Mean Corpuscular Hgb Conc 34.4 g/dL (31-36); Mean Corpuscular Volume 88.6 fL (80-97); Mean Platelet Volume 8.5 fL (7.5-11.2); Nucleated Red Blood Cells % 0.1 %/100WBC (0.0-0.8); Platelet Count 219 10^3/uL (150-450); Red Blood Count 4.26 10^6/uL (4.06-5.63); Red Cell Distribution Width 13.6 % (12-17); White Blood Count 7.7 10^3/uL (3.6-10.2)
[2024-01-04] MEDS: CMCS: FLUTICAS/UMECLI/VILANT 100-62.5-25 MDI (NF) INH SCH (07:19)
[2024-01-04 07:27] LABS: Calcium 8.9 mg/dL (8.6-10.3); Creatinine, Serum 1.01 mg/dL (0.67-1.17); Magnesium 2.2 mg/dL (1.9-2.7); eGFR CKD-EPI 86.2 (>60)
[2024-01-04] MEDS ORDERED: Albuterol/Ipratropium NEB.SOL (2.5/0.5 MG) 3 ML NEB.SOLN INH PRN (08:26)
[2024-01-04] MEDS: methylPREDNISolone SOD SUCC 40 mg/ml 1 ml VIAL IV SCH (08:32)
[2024-01-04 09:57] VITALS: BP 128/64
== END 2024-01-04 13:30 | disposition home or self-care (01) ==
LOC: EDHOLD 14:18 → ED 14:18 → SUATTDRO 18:21 → MED 20:29
PROVIDERS: ADMIT Internal Medicine; ATTEND Student in an Organized Health Care Education/Training Program